=== PATIENT | female | born 1955 | race Caucasian/White ===

== ENCOUNTER 2017-01-25 08:44 | Outpatient (CLI) | payer BC | END 2017-01-25 08:45 | disposition home or self-care (01) | LOC: BICMRI 08:44 | PROVIDERS: ATTEND Podiatrist | DX: R22.42 Localized swelling, mass and lump, left lower limb (principal); Z98.890 Other specified postprocedural states; S86.019A Strain of unspecified Achilles tendon, initial encounter; S86.319A Strain of muscle(s) and tendon(s) of peroneal muscle group at lower leg level, unspecified leg, initial encounter ==

== ENCOUNTER 2018-04-17 11:51 | Inpatient (IN) | payer BC ==
[2018-04-17] MEDS ORDERED: Dexamethasone 10 MG/ML VIAL ONE (12:45)
[2018-04-17 12:56] LABS: #Eosinphils 0.1 thou/uL (0.0-0.7); #Lymphocytes 1.2 thou/uL (1.20-3.40); #Monocytes 0.6 thou/uL (0.11-0.59); #Neutrophils 2.8 thou/uL (1.40-6.50); %Eosinophils 3.1 % (0.0-10.0); %Lymphocytes 25.7 % (21.0-51.0); %Monocytes 12.6 % (0.0-10.0); %Neutrophils 57.6 % (42.0-75.0); Hemoglobin 15.7 g/dL (12.0-16.0); Mean Corpuscular HGB CONC 32.8 g/dL (32.0-36.0); Mean Corpuscular Hemoglobin 31.8 pg (27.0-31.0); Mean Corpuscular Volume 96.9 fL (78.0-98.0); Mean Platelet Volume 7.8 fL (7.4-10.4); Platelet Count 148 thou/uL (130-400); RBC Distribution Width 11.6 % (11.5-14.5); Red Blood Cell (RBC) Count 4.94 mill/uL (4.20-5.40); White Blood Cell (WBC) Count 4.8 thou/uL (4.8-10.8)
--- NOTE | 2018-04-17 13:11 | RAD ---
PORTABLE AP CHEST RADIOGRAPH: Date: 04-17-18 History: Difficulty breathing. Coughing up bloody mucous. Comparison: None available. FINDINGS: The cardiac silhouette and pulmonary vasculature are within normal limits. Lungs are clear. Osseous s tructures are intact. IMPRESSION: No acute cardiopulmonary process. POS: [facility]
[2018-04-17 13:14] LABS: ALT (SGPT) 94 U/L (8-55); AST (SGOT) 71 U/L (5-34); Albumin 4.2 g/dL (3.4-4.8); Alkaline Phosphatase 105 U/L (40-150); Anion Gap 12 mmol/L (10-20); BUN (Urea Nitrogen) 7 mg/dL (9.8-20.1); Bilirubin, Total 0.8 mg/dL (0.2-1.2); CK (CPK) 102 U/L (29-168); Calc. Creatinine Clearance 0 mL/min (70-130); Calcium 10.2 mg/dL (7.8-10.44); Carbon Dioxide 26 mmol/L (23-31); Chloride 103 mmol/L (98-107); Estimated GFR-MDRD 63; Globulin 3.4 g/dL (2.4-3.5); Glucose 408 mg/dL (80-115); Potassium 4.1 mmol/L (3.5-5.1); Protein, Total 7.6 g/dL (6.0-8.3); Sodium 137 mmol/L (136-145)
[2018-04-17] MEDS ORDERED: Albuterol Sulfate 2.5 mg/3 ml Neb ONE (15:09)
[2018-04-17] MEDS ORDERED: Albuterol Sulfate 2.5 mg/0.5 ml Neb ONE (15:09)
[2018-04-17] MEDS ORDERED: Insulin Regular 300 UNITS/3 ML VIAL ONE (15:22)
[2018-04-17] MEDS ORDERED: Azithromycin 250 MG TAB ONE (15:22)
[2018-04-17] MEDS ORDERED: Magnesium 2 GM/50 ML BAG (IN WATER) ONE (15:22)
[2018-04-17] MEDS ORDERED: Oseltamivir 75 MG CAP PO SCH (15:45)
[2018-04-17] MEDS ORDERED: cefTRIAXone\\ROCEPHIN 2 GM VIAL ONE (16:03)
[2018-04-17] MEDS ORDERED: Dextrose 50% Abboject 50 ML SYRINGE SLOW IVP PRN (16:45)
[2018-04-17] MEDS ORDERED: Dextrose 5% in Water 1,000 ML IV PRN (16:45)
[2018-04-17 17:29] VITALS: BMI 42.7
[2018-04-17] MEDS ORDERED: Albuterol Sulfate 1.25 MG/3 ML NEB NEB PRN (17:58)
[2018-04-17] MEDS: HumaLOG 300 UNITS/3 ML VIAL SC PRN (18:40)
[2018-04-17] MEDS: Atorvastatin Calcium 40 MG TAB PO SCH (21:35)
[2018-04-17] MEDS: Pregabalin 50 MG CAP PO SCH (21:35)
[2018-04-17] MEDS: Oseltamivir 75 MG CAP PO SCH (21:35)
--- NOTE | 2018-04-18 00:31 | HP ---
CHIEF COMPLAINT: Cough. HISTORY OF PRESENT ILLNESS: This patient is a 62-year-old female, who presented via the emergency department. The patient reported that she started feeling ill on Sunday, which was four days ago. She started with some shortness of breath and then had a cough. It sounds like her cough was actually producing some blood- tinged sputum that was occurring intermittently, not consistently with all sputum production. Today, the patient had 4 or 5 episodes of that. She also has a sore throat, some generalized wheezing, and fatigue described herself as feeling "spent." She also reports that she has some orthopnea and feels like she is gasping for air when she is more flat. Also of note, the patient has been off her diabetic medications for the last four days because she has been feeling ill and ran out of those medicines and did not feel up to going out to getting them refilled. REVIEW OF SYSTEMS: Patient reports some recent headache. She also reports that she has had some edema. Other than that all systems reviewed, all pertinent positives and negatives noted in the history of present illness. PAST MEDICAL HISTORY: Notable for rheumatoid arthritis, hypertension. She had a history of admission to this facility in June of 2015 where she had some edema and dyspnea on exertion. She had a substantial workup at that time including echocardiograms which failed to reveal significant pathology, but was diagnosed with heart failure, possibly diastolic. At the time, patient has had no problems really referable to her heart. Since that time, she does continue to follow with Dr. Gunter. She also reports some "situational" asthma. She has nebulizers and inhalers at home that she only uses very intermittently. Diabetes mellitus; obstructive sleep apnea, on CPAP. She also has a chronic heart murmur, which is apparently benign. FAMILY HISTORY: Grandmother had stroke in her 70s. Father has diabetes. SOCIAL HISTORY: Drinks occasionally wine or whiskey with water. She denies drugs or smoking. She is . She is a full code and her would be her surrogate decision maker. PAST SURGICAL HISTORY: Hysterectomy, bilateral knee replacements, appendectomy, cholecystectomy, and left ankle surgery. ALLERGIES: LATEX AND SULFA. CURRENT MEDICATIONS: 1. Lyrica 200 mg at bedtime. 2. Brintellix 20 mg p.o. daily. 3. Victoza subcu daily. 4. Lyrica 100 mg p.o. daily p.r.n. 5. Lisinopril 10 mg daily. 6. Janumet one p.o. b.i.d. 7. Atorvastatin at bedtime. PHYSICAL EXAMINATION: VITAL SIGNS: Temperature 98.9, pulse 93, respirations 22, O2 saturation 92% on 3 L, and BP was 141/74. Of note, the patient was at 88% on room air in the emergency department. GENERAL APPEARANCE: Morbidly obese, age-appropriate female. She is in no distress. She is awake, alert, oriented, pleasant, and cooperative. HEENT: PERRL. No open lesions. NECK: Supple and symmetric. HEART: Notable for a systolic murmur at the aortic distribution in the right upper sternal border. Normal rate and rhythm. LUNGS: Clear to auscultation at the apices. Otherwise, she has fairly scattered expiratory wheezes and some fine scattered rales with modest air exchange. ABDOMEN: Obese, soft, nontender, and nondistended. Positive bowel sounds. No masses. No organomegaly. EXTREMITIES: Reveal possibly trace pretibial edema, which is not significant. She has no cyanosis or clubbing. SKIN: Warm and dry. PSYCH: Affect and behavior are normal. NEUROLOGIC: Patient is appropriate. She has no focal deficits. LABORATORY DATA: LABORATORY RESULTS: White count 4.8, hemoglobin 15.7, and platelets 148. Sodium 137, potassium 4.1, chloride 103, CO2 is 26, BUN 7, creatinine 0.9, glucose 408, calcium 10.2, AST 71, and ALT 94. Troponin 0.013. BNP is 11.2. Albumin 4.2. Flu screen positive for flu B. IMAGING RESULTS: Chest x-ray shows no acute cardiopulmonary processes. IMPRESSION AND PLAN: 1. Acute hypoxic respiratory failure secondary to underlying asthma and acute flu infection. Supplemental oxygen as needed. Treat underlying causes. 2. Acute influenza B. The patient will be started on Tamiflu, which she will receive daily. We will also cover with Rocephin and azithromycin given that she has immunocompromise state with rheumatoid arthritis, biologic treatment, and history of asthma. 3. Asthma. It sounds like it is intermittent. We will give nebulizer treatments. Hold off on steroids for now. 4. Diabetes mellitus, very poorly controlled. The patient has been out of her medications. I do not believe we have most of her medications in the pharmacy here. We will cover with sliding scale insulin. We will obtain Accu-Cheks and a diabetic diet. 5. Elevated liver enzymes. The patient likely has fatty liver disease given her diabetes and her obesity. We will continue to monitor. 6. Hypertension. Continue with lisinopril. 7. Hyperlipidemia. Continue with the simvastatin. Job ID: [id number] MTDD
[2018-04-18 07:05] LABS: #Lymphocytes 1.5 thou/uL (1.20-3.40); #Monocytes 0.6 thou/uL (0.11-0.59); #Neutrophils 4.7 thou/uL (1.40-6.50); %Basophils 0.5 % (0.0-1.0); %Eosinophils 0.3 % (0.0-10.0); %Lymphocytes 21.7 % (21.0-51.0); %Monocytes 9.1 % (0.0-10.0); %Neutrophils 68.4 % (42.0-75.0); Hemoglobin 15.1 g/dL (12.0-16.0); Mean Corpuscular HGB CONC 32.5 g/dL (32.0-36.0); Mean Corpuscular Hemoglobin 31.1 pg (27.0-31.0); Mean Corpuscular Volume 95.6 fL (78.0-98.0); Mean Platelet Volume 7.5 fL (7.4-10.4); Platelet Count 175 thou/uL (130-400); RBC Distribution Width 11.6 % (11.5-14.5); Red Blood Cell (RBC) Count 4.85 mill/uL (4.20-5.40); White Blood Cell (WBC) Count 6.9 thou/uL (4.8-10.8)
[2018-04-18 07:17] LABS: Anion Gap 20 mmol/L (10-20); BUN (Urea Nitrogen) 14 mg/dL (9.8-20.1); Calc. Creatinine Clearance 148 mL/min (70-130); Calcium 10.5 mg/dL (7.8-10.44); Carbon Dioxide 18 mmol/L (23-31); Chloride 103 mmol/L (98-107); Estimated GFR-MDRD 77; Glucose 294 mg/dL (80-115); Potassium 4.5 mmol/L (3.5-5.1); Sodium 136 mmol/L (136-145)
[2018-04-18] MEDS: HumaLOG 300 UNITS/3 ML VIAL SC PRN ×3 (07:22→16:36)
[2018-04-18] MEDS: Oseltamivir 75 MG CAP PO SCH ×2 (08:27→22:19)
[2018-04-18] MEDS: Lisinopril 10 MG TAB PO SCH (08:27)
[2018-04-18] MEDS: metFORMIN 500 MG TAB PO SCH ×2 (08:27→16:26)
[2018-04-18] MEDS: Enoxaparin Sodium 40 MG/0.4 ML SYRINGE SC SCH (08:28)
[2018-04-18] MEDS: Azithromycin 500 MG in Sodium Chloride 0.9% 250 ML 250 ML IVPB SCH (14:27)
[2018-04-18] MEDS: Vortioxetine Hydrobromide [Trintellix] 20 MG PO SCH (15:30)
[2018-04-18] MEDS: cefTRIAXone\\ROCEPHIN 1 GM in Sodium Chloride 0.9% 100 ML IVPB SCH (16:26)
--- NOTE | 2018-04-18 18:08 | PDOC.PN ---
- Subjective Encounter Start Date: 04/18/18 Encounter Start Time: 10:40 Feeling a little better, but still has cough and sputum. Thinks she has blood in sputum. - Objective Resuscitation Status - Order Detail: 04/17/18 16:34 Resuscitation Status Routine Resuscitation Status: FULL: Full Resuscitation Discussed with: Patient Vital Signs & Weight: Vital Signs (12 hours) Temp Pulse Resp BP BP Pulse Ox 04/18/18 16:00 98.0 F 70 18 127/90 95 04/18/18 14:10 78 22 H 92 L 04/18/18 11:32 98.3 F 77 20 138/82 92 L 04/18/18 08:27 115/78 04/18/18 08:00 91 L 04/18/18 07:51 98.3 F 77 22 H 115/78 91 L Weight Weight 272 lb 14.4 oz I&O: 04/17/18 04/18/18 04/19/18 06:59 06:59 06:59 Intake Total 1590 Balance 1590 Result Diagrams: 04/18/18 06:23 04/18/18 06:23 Additional Labs: Accuchecks 04/18/18 04/18/18 04/18/18 16:32 11:36 04:56 POC Glucose 287 H 253 H 335 H 04/17/18 20:23 POC Glucose 321 H Phys Exam - Physical Examination Constitutional: NAD Scattered wheezes and modest rales. Cardiovascular: RRR, no significant murmur Gastrointestinal: soft, non-tender, no distention Musculoskeletal: no edema Psychiatric: normal affect, A&O x 3 Dx/Plan (1) Influenza B Code(s): J10.1 - FLU DUE TO OTH IDENT INFLUENZA VIRUS W OTH RESP MANIFEST Status: Acute (2) Asthma Code(s): J45.909 - UNSPECIFIED ASTHMA, UNCOMPLICATED Status: Acute (3) Acute and chronic respiratory failure with hypoxia Code(s): J96.21 - ACUTE AND CHRONIC RESPIRATORY FAILURE WITH HYPOXIA Status: Acute (4) Diabetes mellitus Code(s): E11.9 - TYPE 2 DIABETES MELLITUS WITHOUT COMPLICATIONS Status: Acute (5) HTN (hypertension) Code(s): I10 - ESSENTIAL (PRIMARY) HYPERTENSION Status: Acute (6) Hyperlipidemia Code(s): E78.5 - HYPERLIPIDEMIA, UNSPECIFIED Status: Acute - Plan * .
[2018-04-18] MEDS: guaiFENesin 200 MG TAB PO SCH (22:18)
[2018-04-18] MEDS: Atorvastatin Calcium 40 MG TAB PO SCH (22:18)
[2018-04-18] MEDS: Pregabalin 50 MG CAP PO SCH (22:19)
[2018-04-19] MEDS: HumaLOG 300 UNITS/3 ML VIAL SC PRN ×3 (07:10→16:55)
[2018-04-19] MEDS: guaiFENesin 200 MG TAB PO SCH ×3 (09:51→22:17)
[2018-04-19] MEDS: Lisinopril 10 MG TAB PO SCH (09:52)
[2018-04-19] MEDS: metFORMIN 500 MG TAB PO SCH ×2 (09:53→16:48)
[2018-04-19] MEDS: Enoxaparin Sodium 40 MG/0.4 ML SYRINGE SC SCH (09:53)
[2018-04-19] MEDS: Oseltamivir 75 MG CAP PO SCH ×2 (09:53→22:18)
[2018-04-19] MEDS: Vortioxetine Hydrobromide [Trintellix] 20 MG PO SCH (09:54)
[2018-04-19] MEDS: Azithromycin 500 MG in Sodium Chloride 0.9% 250 ML 250 ML IVPB SCH (14:38)
[2018-04-19] MEDS: cefTRIAXone\\ROCEPHIN 1 GM in Sodium Chloride 0.9% 100 ML IVPB SCH (16:48)
[2018-04-19] MEDS: HYDROcodone/Chlorphen Polis 5 ML UDCUP PO PRN (19:04)
[2018-04-19] MEDS: Atorvastatin Calcium 40 MG TAB PO SCH (22:17)
[2018-04-19] MEDS: Pregabalin 50 MG CAP PO SCH (22:17)
--- NOTE | 2018-04-19 23:09 | PDOC.PN ---
- Subjective Encounter Start Date: 04/19/18 Encounter Start Time: 10:40 Feeling a little better. Still not 50% back to normal. Still has cough that is productive. - Objective Resuscitation Status - Order Detail: 04/17/18 16:34 Resuscitation Status Routine Resuscitation Status: FULL: Full Resuscitation Discussed with: Patient Vital Signs & Weight: Vital Signs (12 hours) Temp Pulse Resp BP Pulse Ox 04/19/18 20:00 98.0 F 74 18 153/77 H 94 L 04/19/18 17:18 98.3 F 71 16 137/80 93 L 04/19/18 11:31 98.3 F 70 22 H 147/90 H 95 Weight Weight 272 lb 14.4 oz I&O: 04/18/18 04/19/18 04/20/18 06:59 06:59 06:59 Intake Total 1590 1190 Balance 1590 1190 Result Diagrams: 04/18/18 06:23 04/18/18 06:23 Additional Labs: Accuchecks 04/19/18 04/19/18 04/19/18 20:43 16:56 11:48 POC Glucose 209 H 250 H 294 H 04/19/18 05:32 POC Glucose 271 H Phys Exam - Physical Examination Constitutional: NAD Minimal wheezing, scattered rales. Cardiovascular: RRR, no significant murmur, no rub Gastrointestinal: soft, non-tender, no distention, positive bowel sounds Musculoskeletal: no edema Psychiatric: normal affect, A&O x 3 Dx/Plan (1) Influenza B Code(s): J10.1 - FLU DUE TO OTH IDENT INFLUENZA VIRUS W OTH RESP MANIFEST Status: Acute (2) Asthma Code(s): J45.909 - UNSPECIFIED ASTHMA, UNCOMPLICATED Status: Acute (3) Acute and chronic respiratory failure with hypoxia Code(s): J96.21 - ACUTE AND CHRONIC RESPIRATORY FAILURE WITH HYPOXIA Status: Acute (4) Diabetes mellitus Code(s): E11.9 - TYPE 2 DIABETES MELLITUS WITHOUT COMPLICATIONS Status: Acute (5) HTN (hypertension) Code(s): I10 - ESSENTIAL (PRIMARY) HYPERTENSION Status: Acute (6) Hyperlipidemia Code(s): E78.5 - HYPERLIPIDEMIA, UNSPECIFIED Status: Acute - Plan * Continue antivirals, nebs, oxygen. * Increase ambulation as tolerated. * May need to increase insulin. Numbers are actually better than her numbers have been at home prior to admission.
[2018-04-20 07:25] LABS: #Basophils 0.1 thou/uL (0.0-0.2); #Eosinphils 0.2 thou/uL (0.0-0.7); #Lymphocytes 2.3 thou/uL (1.20-3.40); #Monocytes 0.6 thou/uL (0.11-0.59); #Neutrophils 3.8 thou/uL (1.40-6.50); %Basophils 1.4 % (0.0-1.0); %Eosinophils 3.6 % (0.0-10.0); %Lymphocytes 32.3 % (21.0-51.0); %Monocytes 8.4 % (0.0-10.0); %Neutrophils 54.4 % (42.0-75.0); Hemoglobin 16.1 g/dL (12.0-16.0); Mean Corpuscular HGB CONC 33.7 g/dL (32.0-36.0); Mean Corpuscular Hemoglobin 33.2 pg (27.0-31.0); Mean Corpuscular Volume 98.7 fL (78.0-98.0); Mean Platelet Volume 7.4 fL (7.4-10.4); Platelet Count 172 thou/uL (130-400); RBC Distribution Width 11.5 % (11.5-14.5); Red Blood Cell (RBC) Count 4.84 mill/uL (4.20-5.40)
[2018-04-20 07:29] LABS: Hemoglobin A1c 9.5 % (4.0-6.0)
[2018-04-20 07:43] LABS: Anion Gap 15 mmol/L (10-20); BUN (Urea Nitrogen) 10 mg/dL (9.8-20.1); Calc. Creatinine Clearance 131 mL/min (70-130); Calcium 10.3 mg/dL (7.8-10.44); Carbon Dioxide 26 mmol/L (23-31); Chloride 101 mmol/L (98-107); Estimated GFR-MDRD 67; Glucose 244 mg/dL (80-115); Potassium 4.2 mmol/L (3.5-5.1); Sodium 138 mmol/L (136-145)
[2018-04-20] MEDS: guaiFENesin 200 MG TAB PO SCH ×3 (09:02→20:34)
[2018-04-20] MEDS: Lisinopril 10 MG TAB PO SCH (09:02)
[2018-04-20] MEDS: Enoxaparin Sodium 40 MG/0.4 ML SYRINGE SC SCH (09:03)
[2018-04-20] MEDS: metFORMIN 500 MG TAB PO SCH ×2 (09:03→15:34)
[2018-04-20] MEDS: Oseltamivir 75 MG CAP PO SCH ×2 (09:08→20:36)
[2018-04-20] MEDS: Vortioxetine Hydrobromide [Trintellix] 20 MG PO SCH (09:08)
--- NOTE | 2018-04-20 09:39 | PDOC.PN ---
- Subjective Encounter Start Date: 04/20/18 Encounter Start Time: 09:37 Still wheezing and still coughing. Still has some sputum production. - Objective Resuscitation Status - Order Detail: 04/17/18 16:34 Resuscitation Status Routine Resuscitation Status: FULL: Full Resuscitation Discussed with: Patient Vital Signs & Weight: Vital Signs (12 hours) Temp Pulse Resp BP BP Pulse Ox 04/20/18 09:02 138/79 04/20/18 07:40 97.7 F 67 20 119/78 93 L Weight Weight 272 lb 14.4 oz I&O: 04/19/18 04/20/18 04/21/18 06:59 06:59 06:59 Intake Total 1590 1190 Balance 1590 1190 Result Diagrams: 04/20/18 07:05 04/20/18 07:05 Additional Labs: Accuchecks 04/20/18 04/19/18 04/19/18 05:39 20:43 16:56 POC Glucose 223 H 209 H 250 H 04/19/18 11:48 POC Glucose 294 H Phys Exam - Physical Examination Constitutional: NAD Obese. Diffuse, scattered wheezes. Minimal rales. Cardiovascular: RRR II/ M entire precordium. Gastrointestinal: soft, non-tender, no distention, positive bowel sounds Musculoskeletal: no edema Neurological: non-focal Psychiatric: normal affect, A&O x 3 Dx/Plan (1) Influenza B Code(s): J10.1 - FLU DUE TO OTH IDENT INFLUENZA VIRUS W OTH RESP MANIFEST Status: Acute (2) Asthma Code(s): J45.909 - UNSPECIFIED ASTHMA, UNCOMPLICATED Status: Acute (3) Acute and chronic respiratory failure with hypoxia Code(s): J96.21 - ACUTE AND CHRONIC RESPIRATORY FAILURE WITH HYPOXIA Status: Acute (4) Diabetes mellitus Code(s): E11.9 - TYPE 2 DIABETES MELLITUS WITHOUT COMPLICATIONS Status: Acute (5) HTN (hypertension) Code(s): I10 - ESSENTIAL (PRIMARY) HYPERTENSION Status: Acute (6) Hyperlipidemia Code(s): E78.5 - HYPERLIPIDEMIA, UNSPECIFIED Status: Acute (7) ANIBAL (obstructive sleep apnea) Code(s): G47.33 - OBSTRUCTIVE SLEEP APNEA (ADULT) (PEDIATRIC) Status: Acute (8) Rheumatoid arthritis Code(s): M06.9 - RHEUMATOID ARTHRITIS, UNSPECIFIED Status: Acute - Plan * She indicates she has not been receiving nebs. Will change those to scheduled for now. * Continue Tamiflu. * Covering with Rocephin and Azithro because she is vulnerable due to RA and uncontrolled DM. * Avoiding steroids. * Continue supplemental oxygen. Sats slightly better today. * Increased SSI last evening. * Continue Cpap.
[2018-04-20] MEDS ORDERED: Albuterol Sulfate 1.25 MG/3 ML NEB NEB SCH (11:00)
[2018-04-20] MEDS: HYDROcodone/Chlorphen Polis 5 ML UDCUP PO PRN (11:30)
[2018-04-20] MEDS: HumaLOG 300 UNITS/3 ML VIAL SC PRN ×2 (11:35→17:05)
--- NOTE | 2018-04-20 12:26 | RAD ---
PA AND LATERAL CHEST: Date: 04/20/18 HISTORY: Influenza, hypoxemia. COMPARISON: 05/15/18. FINDINGS: The cardiac silhouette and pulmonary vasculature are within normal limits. The lungs remain clear. Th ere has been no interval change from prior study. IMPRESSION: No acute cardiopulmonary process. POS: [facility]
[2018-04-20] MEDS: Albuterol Sulfate 1.25 MG/3 ML NEB NEB SCH ×2 (14:19→18:45)
[2018-04-20] MEDS: cefTRIAXone\\ROCEPHIN 1 GM in Sodium Chloride 0.9% 100 ML IVPB SCH (15:33)
[2018-04-20] MEDS: Azithromycin 500 MG in Sodium Chloride 0.9% 250 ML 250 ML IVPB SCH (15:33)
[2018-04-20] MEDS: Pregabalin 50 MG CAP PO SCH (20:35)
[2018-04-20] MEDS: Atorvastatin Calcium 40 MG TAB PO SCH (20:35)
[2018-04-20] MEDS: Saccharomyces boulardii 250 MG CAP PO SCH (20:35)
[2018-04-21] MEDS: HYDROcodone/Chlorphen Polis 5 ML UDCUP PO PRN ×3 (00:25→23:57)
[2018-04-21] MEDS: Albuterol Sulfate 1.25 MG/3 ML NEB NEB SCH ×4 (02:44→18:47)
[2018-04-21] MEDS: HumaLOG 300 UNITS/3 ML VIAL SC PRN ×3 (06:25→17:58)
[2018-04-21 07:45] LABS: #Basophils 0.1 thou/uL (0.0-0.2); #Eosinphils 0.3 thou/uL (0.0-0.7); #Monocytes 0.5 thou/uL (0.11-0.59); #Neutrophils 3.8 thou/uL (1.40-6.50); %Basophils 0.9 % (0.0-1.0); %Eosinophils 4.2 % (0.0-10.0); %Lymphocytes 29.4 % (21.0-51.0); %Neutrophils 57.5 % (42.0-75.0); Hemoglobin 15.2 g/dL (12.0-16.0); Mean Corpuscular HGB CONC 33.6 g/dL (32.0-36.0); Mean Corpuscular Hemoglobin 32.2 pg (27.0-31.0); Mean Corpuscular Volume 95.9 fL (78.0-98.0); Mean Platelet Volume 7.5 fL (7.4-10.4); Platelet Count 169 thou/uL (130-400); RBC Distribution Width 11.4 % (11.5-14.5); Red Blood Cell (RBC) Count 4.72 mill/uL (4.20-5.40); White Blood Cell (WBC) Count 6.7 thou/uL (4.8-10.8)
[2018-04-21 08:10] LABS: ALT (SGPT) 95 U/L (8-55); AST (SGOT) 71 U/L (5-34); Alkaline Phosphatase 87 U/L (40-150); Anion Gap 14 mmol/L (10-20); BUN (Urea Nitrogen) 9 mg/dL (9.8-20.1); Bilirubin, Total 0.8 mg/dL (0.2-1.2); Calc. Creatinine Clearance 148 mL/min (70-130); Carbon Dioxide 25 mmol/L (23-31); Chloride 103 mmol/L (98-107); Estimated GFR-MDRD 77; Globulin 3.2 g/dL (2.4-3.5); Glucose 243 mg/dL (80-115); Potassium 3.8 mmol/L (3.5-5.1); Protein, Total 7.2 g/dL (6.0-8.3); Sodium 138 mmol/L (136-145)
[2018-04-21] MEDS: guaiFENesin 200 MG TAB PO SCH ×3 (08:29→20:40)
[2018-04-21] MEDS: Lisinopril 10 MG TAB PO SCH (08:30)
[2018-04-21] MEDS: Enoxaparin Sodium 40 MG/0.4 ML SYRINGE SC SCH (08:30)
[2018-04-21] MEDS: metFORMIN 500 MG TAB PO SCH ×2 (08:30→14:21)
[2018-04-21] MEDS: Saccharomyces boulardii 250 MG CAP PO SCH ×2 (08:30→20:40)
[2018-04-21] MEDS: Oseltamivir 75 MG CAP PO SCH ×2 (08:32→20:40)
[2018-04-21] MEDS: Vortioxetine Hydrobromide [Trintellix] 20 MG PO SCH (08:32)
[2018-04-21] MEDS: cefTRIAXone\\ROCEPHIN 1 GM in Sodium Chloride 0.9% 100 ML IVPB SCH (14:00)
--- NOTE | 2018-04-21 14:03 | PDOC.PN ---
- Subjective Encounter Start Date: 04/21/18 Encounter Start Time: 14:01 Slightly better today. Indicates she is about 40% back to baseline and a little better than yesterday. Still coughing, still a little SOB. - Objective Resuscitation Status - Order Detail: 04/17/18 16:34 Resuscitation Status Routine Resuscitation Status: FULL: Full Resuscitation Discussed with: Patient Vital Signs & Weight: Vital Signs (12 hours) Temp Pulse Resp BP Pulse Ox 04/21/18 12:01 75 22 H 100 04/21/18 10:42 93 L 04/21/18 10:40 78 20 93 L 04/21/18 08:23 98.4 F 83 20 120/78 91 L 04/21/18 03:41 97.8 F 80 16 123/64 91 L Weight Weight 272 lb 14.4 oz I&O: 04/20/18 04/21/18 04/22/18 06:59 06:59 06:59 Intake Total 1190 Balance 1190 Result Diagrams: 04/21/18 06:59 04/21/18 06:59 Additional Labs: Accuchecks 04/21/18 04/20/18 04/20/18 05:37 20:11 16:37 POC Glucose 241 H 302 H 232 H Phys Exam - Physical Examination Constitutional: NAD Diffuse wheezes and rales with fair air exchange. No change Cardiovascular: RRR, no significant murmur, no rub Gastrointestinal: soft, non-tender, no distention, positive bowel sounds Musculoskeletal: no edema Lymphatic: no nodes Psychiatric: normal affect, A&O x 3 Dx/Plan (1) Influenza B Code(s): J10.1 - FLU DUE TO OTH IDENT INFLUENZA VIRUS W OTH RESP MANIFEST Status: Acute (2) Asthma Code(s): J45.909 - UNSPECIFIED ASTHMA, UNCOMPLICATED Status: Acute (3) Acute and chronic respiratory failure with hypoxia Code(s): J96.21 - ACUTE AND CHRONIC RESPIRATORY FAILURE WITH HYPOXIA Status: Acute (4) Diabetes mellitus Code(s): E11.9 - TYPE 2 DIABETES MELLITUS WITHOUT COMPLICATIONS Status: Acute (5) HTN (hypertension) Code(s): I10 - ESSENTIAL (PRIMARY) HYPERTENSION Status: Acute (6) Hyperlipidemia Code(s): E78.5 - HYPERLIPIDEMIA, UNSPECIFIED Status: Acute (7) ANIBAL (obstructive sleep apnea) Code(s): G47.33 - OBSTRUCTIVE SLEEP APNEA (ADULT) (PEDIATRIC) Status: Acute (8) Rheumatoid arthritis Code(s): M06.9 - RHEUMATOID ARTHRITIS, UNSPECIFIED Status: Acute (9) Elevated LFTs Code(s): R94.5 - ABNORMAL RESULTS OF LIVER FUNCTION STUDIES Status: Acute - Plan * Slow progress. She was not getting the PRN nebs with any regularity until yesterday. * Continue nebs. Add Dulera. * Avoiding system steroids due to the hyperglycemia and viral infection. * Ambulate as tolerated. * Sats are better, but sounds like they may have been falsely lower due to the nail burkinan. 100% on earlobe. * Suspect LFT's up due to COHEN. Check US in am.
[2018-04-21] MEDS: Azithromycin 500 MG in Sodium Chloride 0.9% 250 ML 250 ML IVPB SCH (14:16)
[2018-04-21] MEDS: Mometasone/Formoterol 120 PUFF INHALER INH SCH (19:18)
[2018-04-21] MEDS: Pregabalin 50 MG CAP PO SCH (20:39)
[2018-04-21] MEDS: Atorvastatin Calcium 40 MG TAB PO SCH (20:40)
[2018-04-22] MEDS: Albuterol Sulfate 1.25 MG/3 ML NEB NEB SCH ×4 (00:54→20:00)
[2018-04-22] MEDS: HumaLOG 300 UNITS/3 ML VIAL SC PRN ×3 (06:23→16:59)
[2018-04-22] MEDS: Mometasone/Formoterol 120 PUFF INHALER INH SCH ×2 (07:00→20:01)
--- NOTE | 2018-04-22 08:38 | ULT ---
RIGHT UPPER QUADRANT GALLBLADDER ULTRASOUND: HISTORY: Elevated LFTs. COMPARISON: None. TECHNIQUE: Real-time may-scale and color evaluation of the right upper quadrant of the abdomen is performed. FINDINGS: The hepatic echotexture is diffusely increased. The liver is enlarged, measuring 21 cm in length. T he portal vein has patent antegrade flow. The pancreas is not well seen. The right kidney measures 14.8 x 5.4 x 7.4 cm without mass, hydronephrosis, or abnormal calcifications. Prior cholecystectomy. IMPRESSION: Hepatomegaly with diffuse hepatic steatosis. POS: [facility]
[2018-04-22] MEDS: Enoxaparin Sodium 40 MG/0.4 ML SYRINGE SC SCH (09:14)
[2018-04-22] MEDS: Saccharomyces boulardii 250 MG CAP PO SCH ×2 (09:14→20:53)
[2018-04-22] MEDS: Lisinopril 10 MG TAB PO SCH (09:14)
[2018-04-22] MEDS: metFORMIN 500 MG TAB PO SCH ×2 (09:14→16:52)
[2018-04-22] MEDS: guaiFENesin 200 MG TAB PO SCH ×3 (09:15→20:55)
[2018-04-22] MEDS: Vortioxetine Hydrobromide [Trintellix] 20 MG PO SCH (09:16)
[2018-04-22] MEDS: Oseltamivir 75 MG CAP PO SCH (10:08)
--- NOTE | 2018-04-22 10:09 | PDOC.PN ---
- Subjective Encounter Start Date: 04/22/18 Encounter Start Time: 10:08 Subjective: cough, sob at times - Objective Resuscitation Status - Order Detail: 04/17/18 16:34 Resuscitation Status Routine Resuscitation Status: FULL: Full Resuscitation Discussed with: Cornelius [place] Reviewed: Yes Vital Signs & Weight: Vital Signs (12 hours) Temp Pulse Resp BP Pulse Ox 04/22/18 07:59 97.9 F 78 20 116/81 99 04/22/18 07:00 82 20 94 L Weight Weight 272 lb 14.4 oz Result Diagrams: 04/21/18 06:59 04/21/18 06:59 Additional Labs: Accuchecks 04/22/18 04/21/18 04/21/18 04:38 20:39 17:04 POC Glucose 239 H 256 H 221 H 04/21/18 11:50 POC Glucose 220 H Phys Exam - Physical Examination Neck: no JVD scattered wheezes, rhonchi Cardiovascular: RRR, no significant murmur Gastrointestinal: soft, positive bowel sounds Musculoskeletal: no edema Dx/Plan (1) Acute and chronic respiratory failure with hypoxia Code(s): J96.21 - ACUTE AND CHRONIC RESPIRATORY FAILURE WITH HYPOXIA Status: Acute (2) Asthma Code(s): J45.909 - UNSPECIFIED ASTHMA, UNCOMPLICATED Status: Acute (3) Diabetes mellitus Code(s): E11.9 - TYPE 2 DIABETES MELLITUS WITHOUT COMPLICATIONS Status: Acute (4) HTN (hypertension) Code(s): I10 - ESSENTIAL (PRIMARY) HYPERTENSION Status: Acute (5) Hyperlipidemia Code(s): E78.5 - HYPERLIPIDEMIA, UNSPECIFIED Status: Acute (6) Influenza B Code(s): J10.1 - FLU DUE TO OTH IDENT INFLUENZA VIRUS W OTH RESP MANIFEST Status: Acute (7) ANIBAL (obstructive sleep apnea) Code(s): G47.33 - OBSTRUCTIVE SLEEP APNEA (ADULT) (PEDIATRIC) Status: Acute (8) Steatohepatitis, nonalcoholic Code(s): K75.81 - NONALCOHOLIC STEATOHEPATITIS (COHEN) Status: Acute - Plan steroids, nebs, antibx, LABA -: [employer] COHEN -: cont tamiflu -: accu/ss/OHA * .
[2018-04-22] MEDS: Azithromycin 500 MG in Sodium Chloride 0.9% 250 ML 250 ML IVPB SCH (15:38)
[2018-04-22] MEDS: cefTRIAXone\\ROCEPHIN 1 GM in Sodium Chloride 0.9% 100 ML IVPB SCH (16:46)
[2018-04-22] MEDS: Pregabalin 50 MG CAP PO SCH (20:53)
[2018-04-22] MEDS: Atorvastatin Calcium 40 MG TAB PO SCH (20:53)
[2018-04-22] MEDS: HYDROcodone/Chlorphen Polis 5 ML UDCUP PO PRN (21:45)
[2018-04-23] MEDS: Albuterol Sulfate 1.25 MG/3 ML NEB NEB SCH ×4 (00:48→18:37)
[2018-04-23] MEDS: HumaLOG 300 UNITS/3 ML VIAL SC PRN (06:18)
[2018-04-23] MEDS: Mometasone/Formoterol 120 PUFF INHALER INH SCH ×2 (07:22→18:42)
[2018-04-23] MEDS: Lisinopril 10 MG TAB PO SCH (08:07)
[2018-04-23] MEDS: metFORMIN 500 MG TAB PO SCH ×2 (08:08→15:28)
[2018-04-23] MEDS: Enoxaparin Sodium 40 MG/0.4 ML SYRINGE SC SCH (08:08)
[2018-04-23] MEDS: Saccharomyces boulardii 250 MG CAP PO SCH ×2 (08:08→20:46)
[2018-04-23] MEDS: Vortioxetine Hydrobromide [Trintellix] 20 MG PO SCH (08:08)
[2018-04-23] MEDS: guaiFENesin 200 MG TAB PO SCH ×3 (08:19→20:46)
--- NOTE | 2018-04-23 13:04 | PDOC.PN ---
- Subjective Encounter Start Date: 04/23/18 Encounter Start Time: 13:03 Subjective: still coughing, sob improved - Objective Resuscitation Status - Order Detail: 04/17/18 16:34 Resuscitation Status Routine Resuscitation Status: FULL: Full Resuscitation Discussed with: Patient PADMINI Reviewed: Yes Vital Signs & Weight: Vital Signs (12 hours) Temp Pulse Resp BP BP BP Pulse Ox 04/23/18 08:07 131/83 04/23/18 07:48 98.1 F 83 20 131/83 92 L 04/23/18 07:22 72 16 96 04/23/18 04:00 97.8 F 72 18 137/82 93 L Weight Weight 272 lb 14.4 oz Result Diagrams: 04/21/18 06:59 04/21/18 06:59 Additional Labs: Accuchecks 04/23/18 04/23/18 04/22/18 11:56 04:33 19:59 POC Glucose 247 H 224 H 214 H 04/22/18 16:31 POC Glucose 234 H Phys Exam - Physical Examination Neck: no JVD distant BS, scattered wheezes Cardiovascular: RRR, no significant murmur Gastrointestinal: soft, non-tender Musculoskeletal: no edema Dx/Plan (1) Acute and chronic respiratory failure with hypoxia Code(s): J96.21 - ACUTE AND CHRONIC RESPIRATORY FAILURE WITH HYPOXIA Status: Acute (2) Asthma Code(s): J45.909 - UNSPECIFIED ASTHMA, UNCOMPLICATED Status: Acute Qualifiers: Asthma severity: severe Asthma complication type: with status asthmaticus (3) Diabetes mellitus Code(s): E11.9 - TYPE 2 DIABETES MELLITUS WITHOUT COMPLICATIONS Status: Acute Qualifiers: Diabetes mellitus type: type 2 Diabetes mellitus roasterman insulin use: without nursing home use Diabetes mellitus complication status: without complication Qualified Code(s): E11.9 - Type 2 diabetes mellitus without complications (4) HTN (hypertension) Code(s): I10 - ESSENTIAL (PRIMARY) HYPERTENSION Status: Acute Qualifiers: Hypertension type: essential hypertension Qualified Code(s): I10 - Essential (primary) hypertension (5) Hyperlipidemia Code(s): E78.5 - HYPERLIPIDEMIA, UNSPECIFIED Status: Chronic Qualifiers: Hyperlipidemia type: pure hypercholesterolemia Qualified Code(s): E78.00 - Pure hypercholesterolemia, unspecified; E78.0 - Pure hypercholesterolemia (6) Influenza B Code(s): J10.1 - FLU DUE TO OTH IDENT INFLUENZA VIRUS W OTH RESP MANIFEST Status: Acute (7) ANIBAL (obstructive sleep apnea) Code(s): G47.33 - OBSTRUCTIVE SLEEP APNEA (ADULT) (PEDIATRIC) Status: Acute (8) Steatohepatitis, nonalcoholic Code(s): K75.81 - NONALCOHOLIC STEATOHEPATITIS (COHEN) Status: Acute - Plan deescalate antibx -: cont tamiflu -: cont LABA, duoneb -: chronic home O2 * .
[2018-04-23] MEDS: Acetaminophen 325 MG TAB PO PRN (15:28)
[2018-04-23] MEDS ORDERED: HumaLOG 300 UNITS/3 ML VIAL SC SCH (17:30)
[2018-04-23] MEDS: Pregabalin 50 MG CAP PO SCH (20:47)
[2018-04-23] MEDS: Atorvastatin Calcium 40 MG TAB PO SCH (20:47)
[2018-04-23] MEDS: HYDROcodone/Chlorphen Polis 5 ML UDCUP PO PRN (20:48)
[2018-04-24] MEDS: Albuterol Sulfate 1.25 MG/3 ML NEB NEB SCH ×2 (00:17→06:44)
[2018-04-24] MEDS: HumaLOG 300 UNITS/3 ML VIAL SC PRN (06:31)
[2018-04-24] MEDS: Mometasone/Formoterol 120 PUFF INHALER INH SCH (06:46)
[2018-04-24 07:56] VITALS: BP 130/82; TEMP 97.7
[2018-04-24] MEDS: guaiFENesin 200 MG TAB PO SCH (08:24)
[2018-04-24] MEDS: metFORMIN 500 MG TAB PO SCH (08:25)
[2018-04-24] MEDS: Lisinopril 10 MG TAB PO SCH (08:25)
[2018-04-24] MEDS: Saccharomyces boulardii 250 MG CAP PO SCH (08:25)
[2018-04-24] MEDS: Acetaminophen 325 MG TAB PO PRN (08:26)
[2018-04-24] MEDS: Enoxaparin Sodium 40 MG/0.4 ML SYRINGE SC SCH (08:26)
[2018-04-24] MEDS: Vortioxetine Hydrobromide [Trintellix] 20 MG PO SCH (08:27)
[2018-04-24] MEDS: HYDROcodone/Chlorphen Polis 5 ML UDCUP PO PRN (08:46)
[2018-04-24] MEDS ORDERED: Azithromycin 250 MG TAB PO SCH (09:00)
[2018-04-24] MEDS ORDERED: Azithromycin 200 MG/5 ML Oral Suspension PO SCH (09:00)
--- NOTE | 2018-04-24 13:36 | DIS ---
DATE OF ADMISSION: 04/17/2018 DATE OF DISCHARGE: 04/24/2018 [place] [facility] [place], [facility] Call admission for [facility], [place]. FINAL DIAGNOSES: Acute respiratory failure with hypoxia, flu type B, acute exacerbation of asthma, fatty changes of liver nonalcoholic, hypertension, diabetes mellitus type 2 without long-term use of insulin or complications, dyslipidemia. DISCHARGE MEDICATIONS: 1. Lyrica 200 mg at bedtime. 2. Trintellix 20 mg a day. 3. Victoza 18 units subcu daily. 4. Lisinopril 10 mg a day. 5. Metformin-Janumet. 6. Metformin-sitagliptin 50-500 one twice a day. 7. Lipitor 40 mg a day. 8. Dulera one puff b.i.d. ALLERGIES: SULFA. DIET: Diabetic. PENDING AT THE TIME OF DISCHARGE: Nothing. CODE STATUS: Full. HOSPITAL COURSE: [facility] with cough and shortness of breath. She was found to have type B flu started on Tamiflu. She was given nebulizer treatments. Steroids were held. She had an elevated liver function test. She was also treated with antibiotics during her hospital stay. Her initial laboratory: Metabolic profile revealed an AST of 71, ALT of 94, lytes were normal. An abdominal ultrasound revealed steatohepatitis/fatty liver. CBC was unremarkable during her hospital stay. She has completed a course of Tamiflu and completed a course of antibiotics. Chest is clear. Vital signs are stable. She is being discharged for followup with her PCP in one week. Dulera one puff b.i.d. was added to her home medicines. CONSULTATIONS: None. PROCEDURES: None. Job ID: [id number]
== END 2018-04-24 13:34 | disposition home or self-care (01) | DRG 193 ==
LOC: ERS 11:51 → T4-A 17:03
PROVIDERS: ADMIT Internal Medicine; ATTEND Internal Medicine
DX: J10.1 Influenza due to other identified influenza virus with other respiratory manifestations (principal); J96.21 Acute and chronic respiratory failure with hypoxia; J45.902 Unspecified asthma with status asthmaticus; J45.901 Unspecified asthma with (acute) exacerbation; I50.32 Chronic diastolic (congestive) heart failure; Z68.41 Body mass index [BMI] 40.0-44.9, adult; E78.5 Hyperlipidemia, unspecified; E78.00 Pure hypercholesterolemia, unspecified; G47.33 Obstructive sleep apnea (adult) (pediatric); K75.81 Nonalcoholic steatohepatitis (NASH); M06.9 Rheumatoid arthritis, unspecified; F41.9 Anxiety disorder, unspecified; F32.9 Major depressive disorder, single episode, unspecified; Z96.653 Presence of artificial knee joint, bilateral; E11.65 Type 2 diabetes mellitus with hyperglycemia; D89.9 Disorder involving the immune mechanism, unspecified; E66.9 Obesity, unspecified; I11.0 Hypertensive heart disease with heart failure
CPT/HCPCS: 36415; 36416; 71045; 71046; 76705; 80048; 80053; 82550; 83036; 83880; 84484; 85025; 87040; 87804; 93005; 94640; 94644; 94760; 96365; 96367; 96375; J0456; J0696; J1100; J1650; J1815; J3475; J7050; J7611; J7620

== ENCOUNTER 2018-08-07 10:01 | Emergency (ER) | payer BC ==
[2018-08-07 10:37] LABS: #Basophils 0.1 thou/uL (0.0-0.2); #Eosinphils 0.4 thou/uL (0.0-0.7); #Lymphocytes 1.9 thou/uL (1.20-3.40); #Monocytes 0.5 thou/uL (0.11-0.59); #Neutrophils 4.6 thou/uL (1.40-6.50); %Basophils 0.8 % (0.0-1.0); %Eosinophils 4.9 % (0.0-10.0); %Lymphocytes 26.1 % (21.0-51.0); %Monocytes 6.6 % (0.0-10.0); %Neutrophils 61.7 % (42.0-75.0); Mean Corpuscular HGB CONC 33.9 g/dL (32.0-36.0); Mean Corpuscular Hemoglobin 32.4 pg (27.0-31.0); Mean Corpuscular Volume 95.7 fL (78.0-98.0); Mean Platelet Volume 7.4 fL (7.4-10.4); Platelet Count 163 thou/uL (130-400); RBC Distribution Width 11.7 % (11.5-14.5); Red Blood Cell (RBC) Count 4.93 mill/uL (4.20-5.40); White Blood Cell (WBC) Count 7.5 thou/uL (4.8-10.8)
[2018-08-07 10:57] LABS: ALT (SGPT) 60 U/L (8-55); AST (SGOT) 48 U/L (5-34); Albumin 4.6 g/dL (3.4-4.8); Alkaline Phosphatase 91 U/L (40-150); Anion Gap 15 mmol/L (10-20); BUN (Urea Nitrogen) 10 mg/dL (9.8-20.1); Bilirubin, Total 0.8 mg/dL (0.2-1.2); CK (CPK) 119 U/L (29-168); Calc. Creatinine Clearance 0 mL/min (70-130); Calcium 10.2 mg/dL (7.8-10.44); Carbon Dioxide 24 mmol/L (23-31); Chloride 107 mmol/L (98-107); Estimated GFR-MDRD 82; Glucose 113 mg/dL (80-115); Potassium 4.6 mmol/L (3.5-5.1); Protein, Total 7.6 g/dL (6.0-8.3); Sodium 141 mmol/L (136-145)
[2018-08-07] MEDS ORDERED: Acetaminophen 500 MG TAB ONE (11:00)
--- NOTE | 2018-08-07 11:05 | RAD ---
RADIOGRAPH CHEST 1 VIEW: 08/07/2018 HISTORY: A 63-year-old female with dyspnea. FINDINGS: There is no air space density, pulmonary edema, or pneumothorax. The lateral costophrenic angles are sharp. IMPRESSION: No acute pulmonary findings. jn [] POS: [facility]
--- NOTE | 2018-08-10 09:39 | EKG ---
Test Reason : Blood Pressure : / mmHG Vent. Rate : 069 BPM Atrial Rate : 069 BPM P-R Int : 200 ms QRS Dur : 088 ms QT Int : 410 ms P-R-T Axes : 056 023 065 degrees QTc Int : 439 ms Normal sinus rhythm Septal infarct , age undetermined Abnormal ECG Confirmed by KISHOR JIN ([id number]), department editor GREYSON CAPONE ([id number]) on 08/10/2018 9:39:38 AM Referred By: Confirmed By:KISHOR JIN
== END 2018-08-07 12:25 | disposition home or self-care (01) ==
LOC: ERS 10:01
DX: I11.0 Hypertensive heart disease with heart failure (principal); I50.9 Heart failure, unspecified; E11.9 Type 2 diabetes mellitus without complications; E78.5 Hyperlipidemia, unspecified; F41.9 Anxiety disorder, unspecified; F32.9 Major depressive disorder, single episode, unspecified; Z79.899 Other long term (current) drug therapy
CPT/HCPCS: 36415; 71045; 80053; 82550; 83880; 84484; 85025; 85379; 93005